=== PATIENT | male | born 1945 | race Caucasian/White ===

== ENCOUNTER → 2016-12-07 | Outpatient (CLI) | payer MEDICARE, OTHER ==
--- NOTE | 2016-12-07 16:58 | REP ---
CHEST, TWO VIEWS: No comparison. Two views of the chest are performed. No infiltrates are seen. However, a somewhat nodular density is seen projecting in the left lung base approximately 1 cm in maximum diameter. This could be related to an underlying rib, but I would recommend a CT of the chest to rule out a pulmonary nodule. Heart is normal in size. Mediastinal silhouette is unremarkable. There are mild degenerative changes of the spine. IMPRESSION: Possible 1 cm nodule left lung base. Recommend CT of the chest to further evaluate. Signed by Esteban Sierra MD 12/07/2016 05:11 P
== END ==
LOC: M RAD 13:20
PROVIDERS: ATTEND Internal Medicine Cardiovascular Disease
DX: I50.42 Chronic combined systolic (congestive) and diastolic (congestive) heart failure (principal); R91.8 Other nonspecific abnormal finding of lung field

== ENCOUNTER → 2016-12-17 | Outpatient (CLI) | payer MEDICARE, OTHER ==
--- NOTE | 2016-12-17 15:24 | REP ---
CT CHEST WITH IV CONTRAST: HISTORY: Abnormal finding and the lung lockhart. Comparison chest x-ray December 07, 2016 showed a possible 1 cm nodule in the left lung base. CT was recommended. CT FINDINGS: There is no evidence of pleural or pericardial effusion. No hilar or mediastinal mass or adenopathy is observed. No bony sclerotic or destructive lesion is seen. There are several tiny foci of pleural thickening along the major fissure on the left consistent with benign pleural plaquing. No pulmonary nodule is seen in the left base to account for the radiographic opacity. There is a small area of tree-in-bud type rafia bronchovascular micronodular density in the right middle lobe lateral segment. This is consistent with post inflammatory change. No endobronchial lesion is seen. There are several low-density lesions scattered about the liver consistent with cysts. These range in size up to 2.8 cm. The visualized upper abdominal structures are otherwise unremarkable. IMPRESSION: No pulmonary nodule is appreciated. No active cardiopulmonary disease. Signed by Aubrey Baptiste MD 12/17/2016 04:59 P
== END ==
LOC: M RAD 13:26
PROVIDERS: ATTEND Internal Medicine Cardiovascular Disease
DX: R91.8 Other nonspecific abnormal finding of lung field (principal)

== ENCOUNTER → 2018-11-23 | Outpatient (CLI) | payer MEDICARE, OTHER ==
[~2018-11-23] MED LIST: LIDOCAINE 1% MDV 20ML VIAL As Ordered ONE
[2018-11-23 10:30] VITALS: BP 122/62
--- NOTE | 2018-11-23 11:42 | REP ---
DIGITAL DIAGNOSTIC UNILATERAL LEFT BREAST MAMMOGRAPHY WITH CAD: Two views. HISTORY: Marker clip placement mammography. The patient is status post ultrasound-guided needle biopsy of the subareolar tissue in the left breast. Comparison mammography October 25, 2018 from [facility]. FINDINGS: CC and true mediolateral views of the left breast demonstrate that the marker clip is in good position in the subareolar breast density tissue seen on mammography. There is no evidence of hematoma. IMPRESSION: Marker clip in place in good position. This mammogram was interpreted with the aid of an FDA-approved computer-aided detection system. Electronically Signed by Aubrey Baptiste MD 11/23/2018 02:18 P
--- NOTE | 2018-11-23 11:45 | REP ---
FOCUSED LEFT BREAST SONOGRAPHY: HISTORY: Pre-procedure scanning. The patient referred for ultrasound-guided left breast retroareolar biopsy. Comparison sonography is from October 31, 2018. Comparison mammography October 25, 2018 from [facility]. FINDINGS: The retroareolar region of the left breast is scanned. Hypoechoic tissue identified on the previous scan is observed. Biopsy will proceed. The area in question measures 1.9 cm in greatest diameter. Electronically Signed by Aubrey Baptiste MD 11/23/2018 02:18 P
--- NOTE | 2018-11-23 17:09 | REP ---
ULTRASOUND-GUIDED LEFT BREAST BIOPSY The procedure was performed under the direct supervision of Dr. Baptiste. The patient has a history of hypoechoic tissue identified in the retroareolar region of the left breast measuring 1.9 centimeter in greatest diameter. This is seen on a previous ultrasound performed earlier today. The risks and benefits of the procedure were explained to the patient and informed consent was obtained. The left breast mass was localized using ultrasound guidance. The skin was prepped and draped in a sterile fashion. 1% lidocaine was used as a local anesthetic. Using ultrasound guidance a 19/20 gauge coaxial needle biopsy system was inserted and advanced into the mass. Seven core biopsy samples were obtained and sent to lab. A marker clip was placed at the biopsy site. The patient tolerated the procedure well and there were no immediate complications. After the appropriate amount of monitored convalescence the patient was discharged from the department. Reviewed by ODALYS Hamilton 11/23/2018 04:41 P Electronically Signed by Aubrey Baptiste MD 11/23/2018 04:59 P
== END ==
LOC: M IRPRO 09:49
DX: N63.20 Unspecified lump in the left breast, unspecified quadrant (principal); N64.4 Mastodynia

== ENCOUNTER → 2021-01-21 | Outpatient (CLI) | payer MEDICARE, OTHER ==
[~2021-01-21] MED LIST changes: +ISOVUE-300 61% 50ML VIAL As Ordered ONE; +TRIAMCINOLONE ACETONIDE SUSP 40 MG/ML VIAL (J3301) As Ordered ONE
--- NOTE | 2021-01-21 15:14 | REP ---
INDICATION: OA RT HIP. COMPARISON: None TECHNIQUE: The procedure was performed by ODALYS Waters, under the direct supervision of Dr. Baptiste. The benefits and risks of the procedure were explained to the patient, and an informed consent was obtained. Directly prior to the start of the procedure, a formal time-out was completed in the procedure room. The right femoral neck joint space was localized using fluoroscopic guidance. The skin was prepped and draped in a sterile fashion. Approximately 5 mL of 1% Lidocaine 10 mg/ml was used as a local anesthetic. Using fluoroscopic guidance, a #22 gauge spinal needle was inserted and advanced into the right femoral neck joint space. Approximately 1 mL of Isovue 300 was injected to verify placement. Seven ML of a solution containing 5 mL 1% lidocaine 10 mg/ml and 2 mL Kenalog 40 milligrams/milliliter was injected into the joint space. The needle was removed and hemostasis was achieved. FINDINGS: The patient tolerated the procedure well and there were no immediate complications. IMPRESSION: 1. Right hip intra-articular pain injection under fluoroscopic guidance. 0.1 minutes of fluoroscopy time was utilized for this procedure. Some fluoroscopic images are performed with last image hold technology. These images require no additional radiation. <Electronically signed by Fide Bello > 01/21/21 1400 <Electronically signed by Osman Baptiste > 01/21/21 1511
== END ==
LOC: M RADPRO 12:25
PROVIDERS: ATTEND Orthopaedic Surgery
DX: M16.11 Unilateral primary osteoarthritis, right hip (principal)
CPT/HCPCS: 20610; 77002; J3301; Q9967

== ENCOUNTER → 2021-11-02 | Outpatient (CLI) | payer MEDICARE, OTHER ==
[2021-11-02 10:17] LABS: HEMATOCRIT 43.2 % (42.0-52.0); MEAN CORPUSCULAR HEMOGLOBIN 32.4 pg (27.0-33.0); MEAN CORPUSCULAR HGB CONC 32.4 g/dl (32.0-36.5); PLATELET COUNT, AUTOMATED 165 10^3/uL (150-450); RED BLOOD COUNT 4.32 10^6/uL (4.30-6.10); WHITE BLOOD COUNT 6.6 10^3/uL (4.0-10.0)
[2021-11-02 14:38] LABS: ALBUMIN 3.7 GM/DL (3.2-5.2); ALT/SGPT 29 U/L (12-78); BILIRUBIN,TOTAL 0.4 MG/DL (0.2-1.0); BLOOD UREA NITROGEN 24 MG/DL (7-18); CALCIUM LEVEL 9.6 MG/DL (8.8-10.2); CARBON DIOXIDE LEVEL 27 MEQ/L (21-32); CHLORIDE LEVEL 108 MEQ/L (98-107); CREATININE FOR GFR 1.13 MG/DL (0.70-1.30); GLOMERULAR FILTRATION RATE > 60.0 (>42); GLUCOSE, FASTING 109 MG/DL (70-100); POTASSIUM SERUM 5.6 MEQ/L (3.5-5.1); SODIUM LEVEL 137 MEQ/L (136-145)
== END ==
LOC: M LAB 09:08
PROVIDERS: ATTEND Physician Assistant
DX: I48.0 Paroxysmal atrial fibrillation (principal)

== ENCOUNTER 2021-11-16 10:24 | Inpatient (IN) | payer MEDICARE, OTHER ==
[2021-11-16] VITALS (11 sets, daily range): BP systolic 105–125; BP diastolic 62–79
[~2021-11-16] VITALS: Ht 198.1 cm; Wt 111.3 kg
[2021-11-16] MEDS ORDERED: ELIQ5TAB PO (10:38)
[2021-11-16] MEDS ORDERED: AMIODARONE HCL 150 MG in IV 1 EA IV STA ×3 (10:54→11:38)
[2021-11-16] MEDS ORDERED: AMIODARONE HCL 150 MG/100 ML PREMIXED BAG (NEXTERONE) (J0282 PER 30MG) As Ordered ONE (10:55)
[2021-11-16 11:04] LABS: BASO % 0.5 % (0.0-1.0); EOS # 0.1 10^3/uL (0.0-0.5); EOS % 1.3 % (0.0-3.0); HEMATOCRIT 45.1 % (42.0-52.0); LYMPH # 2.1 10^3/uL (1.5-5.0); LYMPH % 27.4 % (24.0-44.0); MEAN CORPUSCULAR HEMOGLOBIN 32.5 pg (27.0-33.0); MEAN CORPUSCULAR HGB CONC 33.3 g/dl (32.0-36.5); MEAN CORPUSCULAR VOLUME 97.8 fl (80.0-96.0); MONO # 0.9 10^3/uL (0.0-0.8); NEUTROPHILS # 4.7 10^3/uL (1.5-8.5); NEUTROPHILS % 59.7 % (36.0-66.0); PLATELET COUNT, AUTOMATED 188 10^3/uL (150-450); RED BLOOD COUNT 4.61 10^6/uL (4.30-6.10); WHITE BLOOD COUNT 7.8 10^3/uL (4.0-10.0)
[2021-11-16] MEDS ORDERED: MAG SULF 1GM/100ML (MAG RUN) 1 GM in IV 1 EA IV ONE (11:10)
[2021-11-16 11:13] LABS: INR 1.19; PROTHROMBIN TIME 15.6 SECONDS (12.7-14.5)
[2021-11-16 11:14] LABS: PARTIAL THROMBOPLASTIN TIME 32.8 SECONDS (25.9-37.0)
[2021-11-16] MEDS ORDERED: MAGNESIUM SULFATE 1GM/100ML D5W BAG (10MG/ML) As Ordered ONE (11:14)
[2021-11-16 11:41] LABS: CK-MB VALUE MASS < 1.0 NG/ML (<3.6); CPK CREATINE PHOSPHOKINASE 48 U/L (39-308); MB/CK RELATIVE INDEX 2.08 (< OR =4)
[2021-11-16 11:45] LABS: ALBUMIN 3.8 GM/DL (3.2-5.2); ALT/SGPT 33 U/L (12-78); BILIRUBIN,DIRECT 0.3 MG/DL (0.0-0.2); BILIRUBIN,TOTAL 0.7 MG/DL (0.2-1.0); BLOOD UREA NITROGEN 20 MG/DL (7-18); CALCIUM LEVEL 9.9 MG/DL (8.8-10.2); CARBON DIOXIDE LEVEL 24 MEQ/L (21-32); CHLORIDE LEVEL 109 MEQ/L (98-107); GLOMERULAR FILTRATION RATE > 60.0 (>42); GLUCOSE, FASTING 122 MG/DL (70-100); MAGNESIUM LEVEL 1.8 MG/DL (1.8-2.4); NT-PRO BNP 838 PG/ML (<125); POTASSIUM SERUM 4.2 MEQ/L (3.5-5.1); SODIUM LEVEL 139 MEQ/L (136-145); TOTAL PROTEIN 7.2 GM/DL (6.4-8.2)
[2021-11-16] MEDS ORDERED: AMIODARONE 200 MG TAB (PACERONE) PO ONE (12:00)
[2021-11-16 12:14] LABS: RSV AMPLIFICATION NEGATIVE (NEGATIVE)
[2021-11-16 12:43] LABS: CK-MB VALUE MASS < 1.0 NG/ML (<3.6); CPK CREATINE PHOSPHOKINASE 43 U/L (39-308); MB/CK RELATIVE INDEX 2.33 (< OR =4)
[2021-11-16] MEDS ORDERED: LISI20TA33 PO (12:43)
[2021-11-16] MEDS ORDERED: CARV25TA PO (12:43)
[2021-11-16] MEDS ORDERED: EPLE25TA PO (12:43)
[2021-11-16] MEDS ORDERED: ALLO300T2 PO (12:43)
[2021-11-16] MEDS ORDERED: B-12100010 PO (13:02)
[2021-11-16] MEDS ORDERED: VITA100093 PO (13:02)
[2021-11-16] MEDS ORDERED: TUMERIC PO (13:02)
[2021-11-16] MEDS ORDERED: HOME MED LIST COMPLETE! XX SCH (13:05)
[2021-11-16] MEDS: AMIODARONE 200 MG TAB (PACERONE) PO SCH ×3 (13:25→20:47)
[2021-11-16] MEDS: allopurinoL 300 MG TAB PO SCH (15:02)
[2021-11-16] MEDS ORDERED: AMIODARONE 150MG/3ML INJ (J0282) IVP STA (16:12)
[2021-11-16] MEDS ORDERED: AMIODARONE HCL 150 MG in IV 1 EA IV ONE (16:40)
[2021-11-16] MEDS ORDERED: ETOMIDATE INJ 20MG/10ML VIAL ONE (19:26)
[2021-11-16] MEDS: CARVedilol 12.5 MG TAB PO SCH (20:48)
[2021-11-16] MEDS ORDERED: APIXABAN 5 MG TAB (ELIQUIS) PO SCH (21:00)
[2021-11-17] VITALS (16 sets, daily range): BP systolic 95–140; BP diastolic 56–87
[2021-11-17] MEDS ORDERED: AMIODARONE HCL 150 MG in IV 1 EA IV STA (03:22)
[2021-11-17] MEDS ORDERED: AMIODARONE HCL 150 MG/100 ML PREMIXED BAG (NEXTERONE) (J0282 PER 30MG) As Ordered ONE (03:24)
[2021-11-17] MEDS ORDERED: AMIODARONE 150MG/3ML INJ (J0282) IVP ONE (04:00)
[2021-11-17] MEDS ORDERED: AMIODARONE HCL 150 MG in IV 1 EA IV ONE (04:00)
[2021-11-17 04:56] LABS: BASO % 0.4 % (0.0-1.0); EOS # 0.2 10^3/uL (0.0-0.5); EOS % 1.9 % (0.0-3.0); HEMATOCRIT 43.9 % (42.0-52.0); HEMOGLOBIN 14.5 g/dl (13.5-17.5); LYMPH % 25.1 % (24.0-44.0); MEAN CORPUSCULAR HEMOGLOBIN 31.7 pg (27.0-33.0); MEAN CORPUSCULAR VOLUME 95.9 fl (80.0-96.0); MONO # 0.8 10^3/uL (0.0-0.8); MONO % 9.6 % (2.0-8.0); NEUTROPHILS # 5.1 10^3/uL (1.5-8.5); NEUTROPHILS % 62.8 % (36.0-66.0); PLATELET COUNT, AUTOMATED 151 10^3/uL (150-450); RED BLOOD COUNT 4.58 10^6/uL (4.30-6.10); WHITE BLOOD COUNT 8.1 10^3/uL (4.0-10.0)
[2021-11-17 05:40] LABS: BLOOD UREA NITROGEN 16 MG/DL (7-18); CALCIUM LEVEL 8.9 MG/DL (8.8-10.2); CARBON DIOXIDE LEVEL 23 mmol/L (20-29); CHLORIDE LEVEL 108 MEQ/L (98-107); CREATININE FOR GFR 0.96 MG/DL (0.70-1.30); GLOMERULAR FILTRATION RATE > 60.0 (>42); GLUCOSE, FASTING 120 MG/DL (70-100); POTASSIUM SERUM 3.9 MEQ/L (3.5-5.1); SODIUM LEVEL 142 MEQ/L (136-145)
[2021-11-17 05:41] LABS: MAGNESIUM LEVEL 1.7 MG/DL (1.8-2.4); PHOSPHORUS LEVEL 3.3 MG/DL (2.5-4.9)
[2021-11-17 05:44] LABS: CK-MB VALUE MASS < 1.0 NG/ML (<3.6); CPK CREATINE PHOSPHOKINASE 43 U/L (39-308); MB/CK RELATIVE INDEX 2.32 (< OR =4)
[2021-11-17] MEDS ORDERED: POTASSIUM CHLORIDE 10% LIQ 20 MEQ/15 ML UDC PO ONE (07:00)
[2021-11-17] MEDS ORDERED: MAG SULF 1GM/100ML (MAG RUN) 1 GM in IV 1 EA IV ONE ×2 (07:00→07:45)
[2021-11-17] MEDS ORDERED: MAGNESIUM SULFATE IN WATER 2 GM in IV 1 EA IV STA ×2 (07:35)
[2021-11-17] MEDS: AMIODARONE 200 MG TAB (PACERONE) PO SCH ×4 (08:23→21:59)
[2021-11-17] MEDS: allopurinoL 300 MG TAB PO SCH (08:24)
[2021-11-17] MEDS: CARVedilol 12.5 MG TAB PO SCH ×2 (08:24→21:59)
[2021-11-17 13:09] LABS: BLOOD UREA NITROGEN 13 MG/DL (7-18); CALCIUM LEVEL 9.2 MG/DL (8.8-10.2); CARBON DIOXIDE LEVEL 25 MEQ/L (21-32); CHLORIDE LEVEL 107 MEQ/L (98-107); CREATININE FOR GFR 0.94 MG/DL (0.70-1.30); GLOMERULAR FILTRATION RATE > 60.0 (>42); GLUCOSE, FASTING 120 MG/DL (70-100); MAGNESIUM LEVEL 2.2 MG/DL (1.8-2.4); POTASSIUM SERUM 4.1 MEQ/L (3.5-5.1); SODIUM LEVEL 137 MEQ/L (136-145)
[2021-11-18 00:18] VITALS: BP 92/50
[2021-11-18 04:00] VITALS: BP 109/67
[2021-11-18 05:32] LABS: BASO % 0.4 % (0.0-1.0); EOS # 0.2 10^3/uL (0.0-0.5); HEMATOCRIT 43.2 % (42.0-52.0); HEMOGLOBIN 14.3 g/dl (13.5-17.5); LYMPH # 1.9 10^3/uL (1.5-5.0); LYMPH % 24.9 % (24.0-44.0); MEAN CORPUSCULAR HEMOGLOBIN 31.8 pg (27.0-33.0); MEAN CORPUSCULAR HGB CONC 33.1 g/dl (32.0-36.5); MONO # 0.9 10^3/uL (0.0-0.8); MONO % 11.8 % (2.0-8.0); NEUTROPHILS # 4.6 10^3/uL (1.5-8.5); NEUTROPHILS % 59.6 % (36.0-66.0); PLATELET COUNT, AUTOMATED 164 10^3/uL (150-450); WHITE BLOOD COUNT 7.7 10^3/uL (4.0-10.0)
[2021-11-18 05:58] LABS: BLOOD UREA NITROGEN 19 MG/DL (7-18); CHLORIDE LEVEL 109 MEQ/L (98-107); CREATININE FOR GFR 1.02 MG/DL (0.70-1.30); GLOMERULAR FILTRATION RATE > 60.0 (>42); GLUCOSE, FASTING 103 MG/DL (70-100); POTASSIUM SERUM 4.4 MEQ/L (3.5-5.1); SODIUM LEVEL 141 MEQ/L (136-145)
[2021-11-18 05:59] LABS: ALBUMIN 3.4 GM/DL (3.2-5.2); ALT/SGPT 35 U/L (12-78); BILIRUBIN,TOTAL 0.6 MG/DL (0.2-1.0); CALCIUM LEVEL 9.3 MG/DL (8.8-10.2); CARBON DIOXIDE LEVEL 24 MEQ/L (21-32); MAGNESIUM LEVEL 1.9 MG/DL (1.8-2.4); TOTAL PROTEIN 6.4 GM/DL (6.4-8.2)
[2021-11-18] MEDS ORDERED: MAG SULF 1GM/100ML (MAG RUN) 1 GM in IV 1 EA IV ONE (07:20)
[2021-11-18 08:04] VITALS: BP 119/70
[2021-11-18] MEDS: allopurinoL 300 MG TAB PO SCH (08:05)
[2021-11-18] MEDS: CARVedilol 12.5 MG TAB PO SCH (08:05)
[2021-11-18] MEDS: AMIODARONE 200 MG TAB (PACERONE) PO SCH ×3 (08:05→16:35)
[2021-11-18 11:54] VITALS: BP 122/70
[2021-11-18] MEDS ORDERED: HEPARIN SOD (PORCINE) 5000UNITS/ML 1ML VIAL/SYRINGE SQ SCH (14:00)
[2021-11-18 16:34] VITALS: BP 117/66
[2021-11-18 18:56] VITALS: BP 129/83
== END 2021-11-18 19:10 | disposition short-term general hospital (02) | DRG 309 ==
LOC: M ED 10:24 → M ED INP 12:22 → ENRESERV 12:42 → M ICU 13:35
PROVIDERS: ADMIT Internal Medicine Cardiovascular Disease; ATTEND Family Medicine
DX: I47.2 Ventricular tachycardia (principal); I42.8 Other cardiomyopathies; I50.42 Chronic combined systolic (congestive) and diastolic (congestive) heart failure; R07.89 Other chest pain; Z79.01 Long term (current) use of anticoagulants; Z68.28 Body mass index [BMI] 28.0-28.9, adult; I10 Essential (primary) hypertension; I44.0 Atrioventricular block, first degree; E83.42 Hypomagnesemia; I44.7 Left bundle-branch block, unspecified; Z95.810 Presence of automatic (implantable) cardiac defibrillator; G47.33 Obstructive sleep apnea (adult) (pediatric); I47.1 Supraventricular tachycardia; Z79.899 Other long term (current) drug therapy

== ENCOUNTER 2021-11-27 00:23 | Emergency (ER) | payer MEDICARE, OTHER ==
[~2021-11-27] VITALS: Ht 198.1 cm; Wt 109.1 kg
[~2021-11-27 00:23] MED LIST changes: +ALLO300T2 PO; +B-12100010 PO; +CARV25TA PO; +ELIQ5TAB PO; +EPLE25TA PO; -ISOVUE-300 61% 50ML VIAL As Ordered ONE; -LIDOCAINE 1% MDV 20ML VIAL As Ordered ONE; +LISI20TA33 PO; -TRIAMCINOLONE ACETONIDE SUSP 40 MG/ML VIAL (J3301) As Ordered ONE; +TUMERIC PO; +VITA100093 PO
[2021-11-27 00:45] LABS: BASO % 0.6 % (0.0-1.0); EOS % 2.1 % (0.0-3.0); HEMATOCRIT 41.8 % (42.0-52.0); HEMOGLOBIN 14.1 g/dl (13.5-17.5); LYMPH % 23.5 % (24.0-44.0); MEAN CORPUSCULAR HEMOGLOBIN 32.5 pg (27.0-33.0); MEAN CORPUSCULAR HGB CONC 33.7 g/dl (32.0-36.5); MEAN CORPUSCULAR VOLUME 96.3 fl (80.0-96.0); MONO % 10.3 % (2.0-8.0); NEUTROPHILS % 63.1 % (36.0-66.0); PLATELET COUNT, AUTOMATED 233 10^3/uL (150-450); RED BLOOD COUNT 4.34 10^6/uL (4.30-6.10)
[2021-11-27 00:46] LABS: BASO # 0.1 10^3/uL (0.0-0.2); EOS # 0.2 10^3/uL (0.0-0.5); LYMPH # 2.1 10^3/uL (1.5-5.0); MONO # 0.9 10^3/uL (0.0-0.8); NEUTROPHILS # 5.7 10^3/uL (1.5-8.5)
[2021-11-27 01:28] LABS: CK-MB VALUE MASS < 1.0 NG/ML (<3.6); CPK CREATINE PHOSPHOKINASE 54 U/L (39-308); MB/CK RELATIVE INDEX 1.85 (< OR =4)
[2021-11-27 01:34] LABS: BLOOD UREA NITROGEN 25 MG/DL (7-18); CALCIUM LEVEL 9.3 MG/DL (8.8-10.2); CARBON DIOXIDE LEVEL 25 MEQ/L (21-32); CHLORIDE LEVEL 104 MEQ/L (98-107); CREATININE FOR GFR 1.18 MG/DL (0.70-1.30); FREE T4 1.07 NG/DL (0.76-1.46); GLOMERULAR FILTRATION RATE > 60.0 (>42); GLUCOSE, FASTING 114 MG/DL (70-100); MAGNESIUM LEVEL 2.2 MG/DL (1.8-2.4); NT-PRO BNP 669 PG/ML (<125); POTASSIUM SERUM 4.6 MEQ/L (3.5-5.1); SODIUM LEVEL 134 MEQ/L (136-145)
[2021-11-27 02:22] LABS: CK-MB VALUE MASS < 1.0 NG/ML (<3.6); CPK CREATINE PHOSPHOKINASE 169 U/L (39-308); MB/CK RELATIVE INDEX 0.59 (< OR =4)
[2021-11-27 04:00] VITALS: BP_SYST 136; BP_SYST 143; BP_DIAS 84
[2021-11-27] MEDS ORDERED: APIXABAN 5 MG TAB (ELIQUIS) PO ONE (04:00)
[2021-11-27] MEDS ORDERED: AMIODARONE 200 MG TAB (PACERONE) PO ONE (04:00)
[2021-11-27] MEDS ORDERED: CARVedilol 12.5 MG TAB PO ONE (04:00)
== END 2021-11-27 04:20 | disposition home or self-care (01) ==
LOC: M ED 00:23
DX: R07.9 Chest pain, unspecified (principal); I25.10 Atherosclerotic heart disease of native coronary artery without angina pectoris; I10 Essential (primary) hypertension; E78.5 Hyperlipidemia, unspecified; Z95.0 Presence of cardiac pacemaker; Z79.899 Other long term (current) drug therapy; Z88.8 Allergy status to other drugs, medicaments and biological substances

== ENCOUNTER → 2022-10-28 | Outpatient (CLI) | payer OTHER ==
[~2022-10-28] MED LIST changes: +ISOVUE-300 61% 100ML VIAL As Ordered ONE; +LIDOCAINE 1% MDV 20ML VIAL As Ordered ONE; +TRIAMCINOLONE ACETONIDE SUSP 40MG/ML 1ML VIAL As Ordered ONE
== END ==
LOC: M RAD 10:39
PROVIDERS: ATTEND Orthopaedic Surgery
DX: M16.0 Bilateral primary osteoarthritis of hip (principal)
CPT/HCPCS: 20610; 77002; J3301; Q9967

== ENCOUNTER → 2023-11-02 | Outpatient (CLI) | payer MEDICARE, OTHER ==
[~2023-11-02] MED LIST changes: -EPLE25TA PO; +EPLE25TA2 PO
== END ==
LOC: M RAD 10:20
PROVIDERS: ATTEND Orthopaedic Surgery
DX: M16.11 Unilateral primary osteoarthritis, right hip (principal)
CPT/HCPCS: 20610; 77002; J3301; Q9967

== ENCOUNTER → 2023-11-09 | Outpatient (CLI) | payer MEDICARE, OTHER | LOC: M RAD 14:53 | PROVIDERS: ATTEND Orthopaedic Surgery | DX: M16.12 Unilateral primary osteoarthritis, left hip (principal) | CPT/HCPCS: 20610; 77002; J3301; Q9967 ==

== ENCOUNTER → 2024-12-03 | Outpatient (CLI) | payer MEDICARE, OTHER ==
[~2024-12-03] MED LIST changes: +EPLE25TA15 PO; -EPLE25TA2 PO; -ISOVUE-300 61% 100ML VIAL As Ordered ONE; -LIDOCAINE 1% MDV 20ML VIAL As Ordered ONE; -TRIAMCINOLONE ACETONIDE SUSP 40MG/ML 1ML VIAL As Ordered ONE
== END ==
LOC: M SLEEP HO 11:05
PROVIDERS: ATTEND Physician Assistant
DX: G47.33 Obstructive sleep apnea (adult) (pediatric) (principal)

== ENCOUNTER → 2024-12-11 | Outpatient (CLI) | payer MEDICARE, OTHER ==
[~2024-12-11] MED LIST changes: +ISOVUE-300 61% 100 ML VIAL As Ordered ONE; +LIDOCAINE 1% MDV 20 ML VIAL As Ordered ONE; +methylPREDNISolone SUSP 40 MG/ML 1 ML VIAL As Ordered ONE
== END ==
LOC: M RAD 14:32
PROVIDERS: ATTEND Physician Assistant
DX: M16.12 Unilateral primary osteoarthritis, left hip (principal)
CPT/HCPCS: 20610; 77002; J1010; Q9967